=== PATIENT | female | born 1980 | race Caucasian/White ===

== ENCOUNTER 2019-08-24 21:46 | Emergency (ER) | payer OTHER ==
[~2019-08-24] VITALS: Ht 170.2 cm; Wt 90.7 kg
[~2019-08-24 21:46] MED LIST: ALPR1 PO; BUPR150T2 PO; DIPH50 PO; HYDACE5 PO; IBUP800 PO; NAPR550 PO; OXYACE5T PO; PENVK500 PO; RXNAPNA550 PO
[2019-08-24] MEDS ORDERED: ESTRADIOL (22:32)
[2019-08-24] MEDS ORDERED: IBUP800 PO (23:51)
[2019-08-24] MEDS ORDERED: Valium5 MG PO (23:51)
[2019-08-24] MEDS ORDERED: Ultram50 MG PO (23:51)
== END 2019-08-25 00:28 | disposition home or self-care (01) ==
LOC: ER 21:46
DX: S39.011A Strain of muscle, fascia and tendon of abdomen, initial encounter (principal); I10 Essential (primary) hypertension; F17.210 Nicotine dependence, cigarettes, uncomplicated; Z88.5 Allergy status to narcotic agent; Z88.2 Allergy status to sulfonamides; Z88.8 Allergy status to other drugs, medicaments and biological substances; X50.0XXA Overexertion from strenuous movement or load, initial encounter
CPT/HCPCS: 74177; 84703; 96374-59; 96375; 99284-25; J1885; J2060; J3010; Q9967